=== PATIENT | female | born 1955 | race Caucasian/White ===

== ENCOUNTER → 2017-03-06 | Day surgery (SDC) | payer BC ==
[~2017-03-06] MED LIST: LACTATED RINGER'S 1000 ML INJ 1,000 ML ONE; PROPOFOL 500 MG/50 ML BTL IV ONE
--- NOTE | 2017-03-06 12:18 | GIPROC ---
[facility] [address] [facility], [address] EGD PROCEDURE REPORT EXAM DATE: 03/06/2017 PATIENT NAME: Serene Tomlin MR #: [id number] BIRTHDATE: 1955 ATTENDING: Gregorio Hernandez MD ORDER #: [id number] ASSOCIATE DEAN OF WOMEN: Henna Rosado RN STATUS: outpatient INDICATIONS: The patient is a 61 yr old female here for an EGD due to chest pain PROCEDURE PERFORMED: EGD w/ biopsy MEDICATIONS: None, Per Anesthesia, None, and Per Anesthesia. TOPICAL ANESTHETIC: CONSENT: The patient understands the risks and benefits of the procedure and understands that these risks include, but are not limited to: sedation, allergic reaction, infection, perforation and/or bleeding. Alternative means of evaluation and treatment include, among others: physical exam, x-rays, and/or surgical intervention. The patient elects to proceed with this endoscopic procedure. medical equipment was checked for proper function. Hand hygiene and appropriate measures for infection prevention was taken. After the risks, benefits and alternatives of the procedure were thoroughly explained, Informed consent was verified, confirmed and timeout was successfully executed by the treatment team. The patient was anesthetized with topical anesthesia and the EG-[id number] ([id number]) endoscope was introduced through the mouth and advanced to the second portion of the duodenum. Retroflexed views revealed no abnormalities The gastroscope was then slowly withdrawn and removed. ESOPHAGUS: The mucosa of the esophagus appeared normal. Multiple biopsies were performed. The endoscopy was otherwise normal. ADVERSE EVENTS: There were no complications. IMPRESSIONS: 1. The esophagus appeared normal; multiple biopsies were performed 2. Normal endoscopy otherwise 3. Retroflexed views revealed no abnormalities RECOMMENDATIONS: 1. Await biopsy results. Biopsy results will not be ready for 7-10 days. If you don't hear from us in two weeks, call our office for biopsy results. 2. Follow-up: GI clinic PRN PATIENT CONDITION: stable DISPOSITION: Home REPEAT EXAM: Gregorio Hernandez MD eSigned: Gregorio Hernandez MD 03/06/2017 12:17 PM cc: Danielle Bragg [facility] Dasha
== END | disposition home or self-care (01) ==
LOC: ESDC 10:12
PROVIDERS: ATTEND Internal Medicine Gastroenterology
DX: R07.9 Chest pain, unspecified (principal)
CPT/HCPCS: 00740; 43239; 88305; J3010; J7120

== ENCOUNTER → 2017-03-15 | Outpatient (CLI) | payer BC | LOC: CLAB 13:53 | PROVIDERS: ATTEND Internal Medicine Cardiovascular Disease | DX: R07.9 Chest pain, unspecified (principal) | CPT/HCPCS: 36415; 85379 ==

== ENCOUNTER 2017-10-28 18:46 | Observation (INO) | payer BC ==
[~2017-10-28] VITALS: Ht 165.1 cm; Wt 80.5 kg
[2017-10-28 18:48] VITALS: BP 146/80; PULSE 84; RESP 18; TEMP 98.3; O2SAT 98
[2017-10-28] MEDS ORDERED: PLAV75TA29 PO (20:13)
[2017-10-28] MEDS ORDERED: SODIUM CHLORIDE 0.9% FLUSH 10 ML FLUSH IVF PRN (21:00)
[2017-10-28] MEDS ORDERED: ASPIRIN 81 MG CHEW TAB PO ONE (21:00)
--- NOTE | 2017-10-28 21:03 | PD ---
HPI Chief Complaint: Chest Pain Time Seen by Provider: 20:42 Travel History International Travel<30 days: No Contact w/Intl Traveler<30days: No Traveled to known affect area: No History of Present Illness HPI 62-year-old female presents to the emergency department complaining of midsternal chest pain that started while she is getting for work this morning about 7 AM. States that she was getting ready when the pain started and has been waxing and waning all day. Patient states that currently her pain is 4 out of 10. States that is nonradiating and feels "heavy" in the middle of her chest. States that her pain is not associated with activity. States that she was evaluated 1 year ago and had 1 stent placed. States her last stress test was in February 2017. Her elementary school tutor is Dr. Balderas. Patient denies associated shortness of breath, nausea, vomiting, abdominal pain, back pain. Denies chronic lung issues. Patient does not have nitroglycerin as her blood pressure normally is too low. Patient takes Plavix daily. PFSH Past Medical History Hx Anticoagulant Therapy: Yes (plavix) Cardiovascular Problems: Yes (stent) Diminished Hearing: No Tetanus Vaccination: Unknown Influenza Vaccination: No Past Surgical History Coronary Stent: Yes Other Surgery: Yes (plates to left wrist) Social History Alcohol Use: No Tobacco Use: No Allergies-Medications (Allergen,Severity, Reaction): Uncoded Allergies: NKA (Allergy, Unknown, 06/08/03) Reported Meds & Prescriptions Reported Meds & Active Scripts Active Reported Plavix (Clopidogrel Bisulfate) 75 Mg Tab 75 Mg PO DAILY Review of Systems Except as stated in HPI: all other systems reviewed are Neg Physical Exam Narrative GENERAL: Well-developed well-nourished in no apparent distress, resting comfortably in bed upright SKIN: Focused skin assessment warm/dry. HEAD: Atraumatic. Normocephalic. EYES: Pupils equal and round. No scleral icterus. No injection or drainage. ENT: No nasal bleeding or discharge. Mucous membranes pink and moist. NECK: Trachea midline. No JVD. No lymphadenopathy CARDIOVASCULAR: Regular rate and rhythm. No murmur appreciated. RESPIRATORY: No accessory muscle use. Clear to auscultation. Breath sounds equal bilaterally. GASTROINTESTINAL: Abdomen soft, non-tender, nondistended. No CVA tenderness MUSCULOSKELETAL: No obvious deformities. No clubbing. No cyanosis. No edema. No tenderness palpation of the chest wall NEUROLOGICAL: Awake and alert. No obvious cranial nerve deficits. Motor grossly within normal limits. Normal speech. PSYCHIATRIC: Appropriate mood and affect; insight and judgment normal. Data Data Last Documented VS Vital Signs Date Time Temp Pulse Resp B/P (MAP) Pulse Ox O2 Delivery O2 Flow Rate FiO2 10/28/17 22:45 122/67 (85) 113/66 (82) 10/28/17 22:37 99 Room Air 10/28/17 18:48 98.3 84 18 Orders Orders Electrocardiogram (10/28/17 ) Electrocardiogram (10/28/17 20:54) Ckmb (Isoenzyme) Profile (10/28/17 20:54) Complete Blood Count With Diff (10/28/17 20:54) Comprehensive Metabolic Panel (10/28/17 20:54) Magnesium (Mg) (10/28/17 20:54) Prothrombin Time / Inr (Pt) (10/28/17 20:54) Act Partial Throm Time (Ptt) (10/28/17 20:54) Troponin I (10/28/17 20:54) Chest, Single Ap (10/28/17 20:54) Ecg Monitoring (10/28/17 20:54) Bilateral Bp Monitoring (10/28/17 20:54) Iv Access Insert/Monitor (10/28/17 20:54) Oximetry (10/28/17 20:54) Oxygen Administration (10/28/17 20:54) Aspirin Chew (Aspirin Chew) (10/28/17 21:00) Sodium Chloride 0.9% Flush (Ns Flush) (10/28/17 21:00) CKMB (10/28/17 20:58) CKMB% (10/28/17 20:58) Activity Bed Rest With Brp (10/28/17 22:43) Vital Signs (Adult) Q4H (10/28/17 22:43) Cardiac Rhythm .As Directed (10/28/17 22:43) Notify Dr: Other .PRN (10/28/17 22:43) Notify Parameters (10/28/17 22:43) Diet Heart Healthy (10/29/17 Breakfast) Ckmb (Isoenzyme) Profile (10/28/17 23:58) Ckmb (Isoenzyme) Profile (10/29/17 02:58) Troponin I (10/28/17 23:58) Troponin I (10/29/17 02:58) Electrocardiogram (10/28/17 23:58) Electrocardiogram (10/29/17 02:58) ^ Obtain (10/28/17 22:43) Sodium Chloride 0.9% Flush (Ns Flush) (10/29/17 09:00) Integrated Program Teacher / Telemetry PETE.Q8H (10/28/17 22:43) Admit Order (Ed Use Only) (10/28/17 22:46) Labs Laboratory Tests Test 10/28/17 20:58 White Blood Count 6.2 TH/MM3 Red Blood Count 4.77 MIL/MM3 Hemoglobin 13.6 GM/DL Hematocrit 39.7 % Mean Corpuscular Volume 83.3 FL Mean Corpuscular Hemoglobin 28.6 PG Mean Corpuscular Hemoglobin Concent 34.3 % Red Cell Distribution Width 13.0 % Platelet Count 251 TH/MM3 Mean Platelet Volume 7.1 FL Neutrophils (%) (Auto) 67.5 % Lymphocytes (%) (Auto) 22.1 % Monocytes (%) (Auto) 9.3 % Eosinophils (%) (Auto) 0.6 % Basophils (%) (Auto) 0.5 % Neutrophils # (Auto) 4.2 TH/MM3 Lymphocytes # (Auto) 1.4 TH/MM3 Monocytes # (Auto) 0.6 TH/MM3 Eosinophils # (Auto) 0.0 TH/MM3 Basophils # (Auto) 0.0 TH/MM3 CBC Comment DIFF FINAL Differential Comment Prothrombin Time 10.7 SEC Prothromb Time International Ratio 1.1 RATIO Activated Partial Thromboplast Time 27.7 SEC Blood Urea Nitrogen 11 MG/DL Creatinine 0.64 MG/DL Random Glucose 84 MG/DL Total Protein 8.0 GM/DL Albumin 4.0 GM/DL Calcium Level 8.4 MG/DL Magnesium Level 2.1 MG/DL Alkaline Phosphatase 100 U/L Aspartate Amino Transf (AST/SGOT) 18 U/L Alanine Aminotransferase (ALT/SGPT) 24 U/L Total Bilirubin 0.3 MG/DL Sodium Level 135 MEQ/L Potassium Level 3.7 MEQ/L Chloride Level 96 MEQ/L Carbon Dioxide Level 30.3 MEQ/L Anion Gap 9 MEQ/L Estimat Glomerular Filtration Rate 95 ML/MIN Total Creatine Kinase 120 U/L Creatine Kinase MB 0.9 NG/ML Troponin I LESS THAN 0.02 NG/ML MDM Medical Decision Making Medical Screen Exam Complete: Yes Emergency Medical Condition: Yes Differential Diagnosis Unstable angina, angina, STEMI, NSTEMI, atypical chest pain Narrative Course 62-year-old female presents to the emergency department complaining of midsternal chest pain that started while she is getting for work this morning about 7 AM. States that she was getting ready when the pain started and has been waxing and waning all day. Patient states that currently her pain is 4 out of 10. States that is nonradiating and feels "heavy" in the middle of her chest. States that her pain is not associated with activity. States that she was evaluated 1 year ago and had 1 stent placed. States her last stress test was in February 2017. Her elementary school tutor is Dr. Balderas. Patient denies associated shortness of breath, nausea, vomiting, abdominal pain, back pain. Denies chronic lung issues. Patient does not have nitroglycerin as her blood pressure normally is too low. Patient takes Plavix daily. Vital signs stable. After further discussion, patient states that she has been evaluated with a CT chest with contrast October 16 for evaluation of her anterior chest pain. She gave me a copy of the study and conclusion was "negative study. No acute cardiopulmonary or bony abnormality demonstrated." This imaging study was from [facility] read by Dr. Fountain. I explained to the patient that because of her previous cardiac history, that we would likely admit her to the chest pain center if her labs and imaging study returned stable. Initial cardiac enzymes negative. Laboratory Tests Test 10/28/17 20:58 White Blood Count 6.2 TH/MM3 Red Blood Count 4.77 MIL/MM3 Hemoglobin 13.6 GM/DL Hematocrit 39.7 % Mean Corpuscular Volume 83.3 FL Mean Corpuscular Hemoglobin 28.6 PG Mean Corpuscular Hemoglobin Concent 34.3 % Red Cell Distribution Width 13.0 % Platelet Count 251 TH/MM3 Mean Platelet Volume 7.1 FL Neutrophils (%) (Auto) 67.5 % Lymphocytes (%) (Auto) 22.1 % Monocytes (%) (Auto) 9.3 % Eosinophils (%) (Auto) 0.6 % Basophils (%) (Auto) 0.5 % Neutrophils # (Auto) 4.2 TH/MM3 Lymphocytes # (Auto) 1.4 TH/MM3 Monocytes # (Auto) 0.6 TH/MM3 Eosinophils # (Auto) 0.0 TH/MM3 Basophils # (Auto) 0.0 TH/MM3 CBC Comment DIFF FINAL Differential Comment Prothrombin Time 10.7 SEC Prothromb Time International Ratio 1.1 RATIO Activated Partial Thromboplast Time 27.7 SEC Blood Urea Nitrogen 11 MG/DL Creatinine 0.64 MG/DL Random Glucose 84 MG/DL Total Protein 8.0 GM/DL Albumin 4.0 GM/DL Calcium Level 8.4 MG/DL Magnesium Level 2.1 MG/DL Alkaline Phosphatase 100 U/L Aspartate Amino Transf (AST/SGOT) 18 U/L Alanine Aminotransferase (ALT/SGPT) 24 U/L Total Bilirubin 0.3 MG/DL Sodium Level 135 MEQ/L Potassium Level 3.7 MEQ/L Chloride Level 96 MEQ/L Carbon Dioxide Level 30.3 MEQ/L Anion Gap 9 MEQ/L Estimat Glomerular Filtration Rate 95 ML/MIN Total Creatine Kinase 120 U/L Creatine Kinase MB 0.9 NG/ML Troponin I LESS THAN 0.02 NG/ML Chest x-ray without acute process. Patient will be admitted to the chest pain center. I explained to the patient and the importance of the observation period today. Patient is a history of cardiac stents that were placed approximately 1 year ago. Her last stress test was in February 2017 which was "normal". Diagnosis Primary Impression: Unstable angina Admitting Information Admitting Physician Requests: Observation Condition: Stable Maral Fisher Oct 28, 2017 21:03
--- NOTE | 2017-10-28 21:44 | RADRPT ---
EXAM DATE/TIME: 10/28/2017 21:09 [facility] COMPARISON: No previous studies available for comparison. INDICATIONS : Chest pain. MEDICAL HISTORY : None. SURGICAL HISTORY : Coronary artery stent. ENCOUNTER: Initial ACUITY: 1 day PAIN SCORE: 4/10 LOCATION: middle chest. FINDINGS: A single view of the chest demonstrates the lungs to be symmetrically aerated without evidence of mas s, infiltrate or effusion. The cardiomediastinal contours are unremarkable. Osseous structures are intact. CONCLUSION: No acute disease. Robert Cruz MD on October 28, 2017 at 21:41 Board Certified Radiologist. This report was verified electronically.
[2017-10-28 21:47] LABS: AUTOMATED NEUTROPHIL # 4.2 TH/MM3 (1.8-7.7); BASOPHIL % 0.5 % (0.0-2.0); EOSINOPHIL % 0.6 % (0.0-4.0); HEMATOCRIT 39.7 % (35.0-46.0); HEMOGLOBIN 13.6 GM/DL (11.6-15.3); LYMPH % 22.1 % (9.0-44.0); LYMPHOCYTE # 1.4 TH/MM3 (1.0-4.8); MEAN CELL VOLUME 83.3 FL (80.0-100.0); MEAN CORPUSCULAR HEMOGLOBIN 28.6 PG (27.0-34.0); MEAN CORPUSCULAR HGB CONC 34.3 % (32.0-36.0); MEAN PLATELET VOLUME 7.1 FL (7.0-11.0); MONO % 9.3 % (0.0-8.0); MONOCYTE # 0.6 TH/MM3 (0-0.9); NEUT % 67.5 % (16.0-70.0); PLATELET COUNT 251 TH/MM3 (150-450); RED BLOOD COUNT 4.77 MIL/MM3 (4.00-5.30); WHITE BLOOD COUNT 6.2 TH/MM3 (4.0-11.0)
[2017-10-28 22:00] LABS: INTERNATIONAL NORMALIZED RATIO 1.1 RATIO; PROTHROMBIN TIME - PATIENT 10.7 SEC (9.8-11.6)
[2017-10-28 22:20] LABS: ALT (GPT) 24 U/L (10-53); AST (GOT) 18 U/L (15-37); BICARBONATE 30.3 MEQ/L (21.0-32.0); BLOOD UREA NITROGEN 11 MG/DL (7-18); CALCIUM 8.4 MG/DL (8.5-10.1); CHLORIDE 96 MEQ/L (98-107); CREATININE 0.64 MG/DL (0.50-1.00); GLOMERULAR FILTRATION RATE 95 ML/MIN (>89); GLUCOSE,RANDOM 84 MG/DL (74-106); MAGNESIUM 2.1 MG/DL (1.5-2.5); SODIUM (NA) 135 MEQ/L (136-145)
[2017-10-28 22:28] LABS: ALKALINE PHOSPHATASE 100 U/L (45-117); TOTAL BILIRUBIN ADULT 0.3 MG/DL (0.2-1.0); TROPONIN I LESS THAN 0.02 NG/ML (0.02-0.05)
[2017-10-28 22:45] VITALS: BP_SYST 113; BP_SYST 122; BP_DIAS 66; BP_DIAS 67
[2017-10-28] MEDS ORDERED: IOHEXOL 350 MG/ML 100 ML BTL (for Cath Lab) OTHER ONE (22:49)
[2017-10-28 23:50] VITALS: BP 112/64; PULSE 64; RESP 17; TEMP 98.4; O2SAT 96
[2017-10-29] VITALS (14 sets, daily range): BP systolic 94–120; BP diastolic 57–78; PULSE 61–82; RESP 16–20; TEMP 97–98.3; O2SAT 95–99
[2017-10-29 00:13] LABS: TROPONIN I LESS THAN 0.02 NG/ML (0.02-0.05)
[2017-10-29 03:45] LABS: TROPONIN I LESS THAN 0.02 NG/ML (0.02-0.05)
--- NOTE | 2017-10-29 08:15 | HHI.HP ---
[facility] Primary Care Physician Danielle Romero MD Chief Complaint Chest pain History of Present Illness This is a 62-year-old female with stated history of CAD that presents to ED via private vehicle with complaint of chest discomfort. It began yesterday all getting ready for work. Describes it as a heaviness in the middle of her chest. It is present all day but waxed and waned in intensity. Believes it resolved somewhere in her sleep last evening. Currently no discomfort in her chest. Discomfort average about a 4 out of 10. Denies shortness of breath, nausea, or diaphoresis. When asked if symptoms are similar to when eating a stent about a year ago she replies "exactly how I felt." Found nothing to worsen or improve the symptoms. States she saw Dr. Germain and had a chemical stress test February 2017 and states that she was told that it was normal. She also states that she was followed by cardiovascular thoracic surgeon as she has had intermittent chest pain since the stent and was told everything was looking okay. She states that she spoke with Dr. Germain last night and that he knows that she is in the hospital. States the only medication she is currently on his Plavix. States that she was told she no longer needed aspirin after one year. Also states she ran out of her cholesterol medicine 2 months ago and did not have the insurance to pay for it. Review of Systems General: Patient denies fevers, chills recent, and recent travel HEENT: Patient denies headache, sore throat, difficulty swallowing. Cardiovascular: Has the chest discomfort as mentioned above. Denies sensation of heart beating rapidly or irregularly. No syncope. Denies diaphoresis. Respiratory: Denies shortness of breath or inspirational chest discomfort. Denies coughing wheezing or hemoptysis. GI: Patient denies nausea, vomiting, diarrhea, abdominal pain, bloody stools. Musculoskeletal: Patient denies joint pain or edema. Denies calf pain or edema. Neurovascular: Patient denies numbness, tingling, weakness in extremities. Denies headache. Endocrine: Denies polyuria and polydipsia. Hematologic: Denies easy bruising. Skin: Denies rash or itching. Past Family Social History Allergies: Uncoded Allergies: NKA (Allergy, Unknown, 06/08/03) Past Medical History CAD. States that she had hyperlipidemia but the last time she had her cholesterol checked was in the 60s. Has not taken medication for 2 months stating she ran out. Denies hypertension, diabetes. Past Surgical History States she had a cardiac catheterization about a year ago with a stent. Left wrist. Reported Medications Reported Meds & Active Scripts Active Reported Plavix (Clopidogrel Bisulfate) 75 Mg Tab 75 Mg PO DAILY Active Ordered Medications Current Medications Medications (Trade) Dose Ordered Sig/Luciano Route Start Time Stop Time Status Last Admin (NS Flush) 2 ml UNSCH PRN IVF 10/28/17 21:00 (NS Flush) 2 ml BID IV FLUSH 10/29/17 09:00 Family History There is family history of CAD. Social History Nonsmoker. Denies alcohol or illicit drugs. Physical Exam Vital Signs Vital Signs Date Time Temp Pulse Resp B/P (MAP) Pulse Ox O2 Delivery O2 Flow Rate FiO2 10/29/17 00:19 10/28/17 23:50 98.4 64 17 112/64 (80) 96 10/28/17 22:45 122/67 (85) 113/66 (82) 10/28/17 22:37 99 Room Air 10/28/17 18:48 98.3 84 18 146/80 (102) 98 Room Air Physical Exam GENERAL: This is a well-nourished, well-developed patient, in no apparent distress. Patient speaks in clear complete sentences. Patient is pleasant. HEENT: Head is atraumatic and normocephalic. Neck is supple without lymphadenopathy and trachea is midline. No JVD or carotid bruits. CARDIOVASCULAR: Regular rate and rhythm without murmurs, gallops, or rubs. RESPIRATORY: Clear to auscultation. Breath sounds equal bilaterally. No wheezes , rales, or rhonchi. Chest wall is nontender. No use of accessory muscles. GASTROINTESTINAL: Abdomen is nontender, nondistended. Abdomen soft. No obvious pulsatile mass or bruit. No CVA tenderness. Strong femoral pulses bilaterally. Normal bowel sounds in all quadrants. MUSCULOSKELETAL: Patient is moving upper and lower extremities freely. No calf tenderness or edema, no Homans sign. Strong pulses in upper and lower extremities. NEUROLOGICAL: Patient is alert and oriented. Cranial nerves 2-12 are grossly intact. No focal deficits and speech is clear. SKIN: No rash and turgor is normal. Laboratory Laboratory Tests Test 10/28/17 20:58 10/28/17 23:30 10/29/17 03:05 White Blood Count 6.2 Red Blood Count 4.77 Hemoglobin 13.6 Hematocrit 39.7 Mean Corpuscular Volume 83.3 Mean Corpuscular Hemoglobin 28.6 Mean Corpuscular Hemoglobin Concent 34.3 Red Cell Distribution Width 13.0 Platelet Count 251 Mean Platelet Volume 7.1 Neutrophils (%) (Auto) 67.5 Lymphocytes (%) (Auto) 22.1 Monocytes (%) (Auto) 9.3 Eosinophils (%) (Auto) 0.6 Basophils (%) (Auto) 0.5 Neutrophils # (Auto) 4.2 Lymphocytes # (Auto) 1.4 Monocytes # (Auto) 0.6 Eosinophils # (Auto) 0.0 Basophils # (Auto) 0.0 CBC Comment DIFF FINAL Differential Comment Prothrombin Time 10.7 Prothromb Time International Ratio 1.1 Activated Partial Thromboplast Time 27.7 Blood Urea Nitrogen 11 Creatinine 0.64 Random Glucose 84 Total Protein 8.0 Albumin 4.0 Calcium Level 8.4 Magnesium Level 2.1 Alkaline Phosphatase 100 Aspartate Amino Transf (AST/SGOT) 18 Alanine Aminotransferase (ALT/SGPT) 24 Total Bilirubin 0.3 Sodium Level 135 Potassium Level 3.7 Chloride Level 96 Carbon Dioxide Level 30.3 Anion Gap 9 Estimat Glomerular Filtration Rate 95 Total Creatine Kinase 120 98 98 Creatine Kinase MB 0.9 Troponin I LESS THAN 0.02 LESS THAN 0.02 LESS THAN 0.02 Result Diagram: 10/28/17205710/28/172057 Imaging Last 48 hours Impressions Chest X-Ray 10/28/172053 Signed Impressions: Service Date/Time: Saturday, October 28, 2017 21:09 - CONCLUSION: No acute disease. Robert Cruz MD Course EKGs have sinus rhythm with incomplete right bundle branch block. Borderline first-degree AV block. No significant ST segment depressions or elevations. Caprini VTE Risk Assessment Caprini VTE Risk Assessment: No/Low Risk (score <= 1) Caprini Risk Assessment Model Point Value = 1 Point Value = 2 Point Value = 3 Point Value = 5 Age 41-60 Minor surgery BMI > 25 kg/m2 Swollen legs Varicose veins or History of unexplained or recurrent spontaneous Oral contraceptives or hormone replacement Sepsis (< 1 month) Serious lung disease, including pneumonia (< 1 month) Abnormal pulmonary function Acute myocardial infarction Congestive heart failure (< 1 month) History of inflammatory bowel disease Medical patient at bed rest Age 61-74 Arthroscopic surgery Major open surgery (> 45 min) Laparoscopic surgery (> 45 min) Malignancy Confined to bed (> 72 hours) Immobilizing plaster cast Central venous access Age >= 75 History of VTE Family history of VTE Factor V Leiden Prothrombin [id number] Lupus anticoagulant Anticardiolipin antibodies Elevated serum homocysteine Heparin-induced thrombocytopenia Other congenital or acquired thrombophilia Stroke (< 1 month) Elective arthroplasty Hip, pelvis, or leg fracture Acute spinal cord injury (< 1 month) Prophylaxis Regimen Total Risk Factor Score Risk Level Prophylaxis Regimen 0-1 Low Early ambulation 2 Moderate Order ONE of the following: *Sequential Compression Device (SCD) *Heparin 5000 units SQ BID 3-4 Higher Order ONE of the following medications: *Heparin 5000 units SQ TID *Enoxaparin/Lovenox 40 mg SQ daily (WT < 150 kg, CrCl > 30 mL/min) *Enoxaparin/Lovenox 30 mg SQ daily (WT < 150 kg, CrCl > 10-29 mL/min) *Enoxaparin/Lovenox 30 mg SQ BID (WT < 150 kg, CrCl > 30 mL/min) AND/OR *Sequential Compression Device (SCD) 5 or more Highest Order ONE of the following medications: *Heparin 5000 units SQ TID (Preferred with Epidurals) *Enoxaparin/Lovenox 40 mg SQ daily (WT < 150 kg, CrCl > 30 mL/min) *Enoxaparin/Lovenox 30 mg SQ daily (WT < 150 kg, CrCl > 10-29 mL/min) *Enoxaparin/Lovenox 30 mg SQ BID (WT < 150 kg, CrCl > 30 mL/min) AND *Sequential Compression Device (SCD) Assessment and Plan Assessment and Plan * Chest pain: Patient states she has history of CAD with a stent. Follows Dr. Germain. Currently asymptomatic. Patient was seen by Dr. Wilkerson cardiology and the chest pain center. Patient has had serial cardiac enzymes and EKGs for ruling out purposes. Home medications at this time early including Plavix. We will continue that. We will restart aspirin and a statin and applynitro ointment. Further plan pending conversation with Dr. Jamidar. * CAD: Continue Plavix and restart statin, aspirinv, and apply nitro ointment. * Patient will need follow-up with PCP and cardiology after discharge. Patient is stable time. She is agreeable to this plan. Elias Owen Oct 29, 2017 08:15
[2017-10-29] MEDS: NITROGLYCERIN 2% OINT 1 GM PACKET TOPICAL SCH ×4 (09:00→23:32)
[2017-10-29] MEDS: METOPROLOL TARTRATE 25 MG TAB PO SCH ×2 (09:00→21:00)
[2017-10-29] MEDS ORDERED: SODIUM CHLOR 0.9% 1000 ML INJ 1,000 ML IV SCH ×2 (09:00→14:53)
[2017-10-29] MEDS: ATORVASTATIN 20 MG TAB PO SCH (09:00)
[2017-10-29] MEDS: CLOPIDOGREL 75 MG TAB PO SCH (09:55)
[2017-10-29] MEDS: ASPIRIN 325 MG TAB PO SCH (09:56)
[2017-10-29] MEDS: SODIUM CHLORIDE 0.9% FLUSH 10 ML FLUSH IV FLUSH SCH ×2 (09:59→21:00)
[2017-10-29] MEDS ORDERED: DIAZEPAM 5 MG TAB PO SCH (11:15)
[2017-10-29] MEDS ORDERED: diphenhydrAMINE HCL 50 MG CAP PO SCH (11:15)
[2017-10-29] MEDS ORDERED: diphenhydrAMINE HCL 50 MG/ML VIAL IV PUSH SCH (11:15)
[2017-10-29] MEDS ORDERED: MIDAZOLAM HCL 2 MG/2 ML VIAL ONE (13:36)
[2017-10-29] MEDS ORDERED: HEPARIN-NS/PF INJ 1,000 ML ONE (13:37)
--- NOTE | 2017-10-29 14:25 | PD.CONS ---
History of Present Illness Service Cardiology Physicians Consult Requested By BETH Tarango Reason for Consult Chest pain, known to our practice Primary Care Physician Danielle Romero MD Diagnoses: (1) Unstable angina History of Present Illness The patient is a 62 year old female known to our practice with a cardiac history of of ASHD, abnormal EKG and hyperlipidemia on Repatha until 2 months ago. The patient had a cardiac cath 09/2016 at [facility] with a proximal LAD bare metal stent. She was on Plavix and ASA up until recently when she stopped ASA. She recently was evaluated by Dr Winn for ongoing chest pain. CT chest was negative for anatomic abnormality. She had a negative nuclear stress test 10/2016. Yesterday, she had developed substernal chest aching and pressure that increased with activity and decreased with sedentary behavior. She states that "it was so bad I thought I should call 911." She admits to recent palpitations. Her fitbit shows an increase of HR from 50s to 110-120 bpm. She has not been exercising recently because she is afraid she will get chest pain. Since admission, EKG is negative for acute ischemia and troponin X 3 are negative. She is currently CP free on evaluation. (Malika Vera) Review of Systems Constitutional: DENIES: Fatigue, Fever, Weight gain, Weight loss Endocrine: DENIES: Abnorml menstrual pattern, Heat/cold intolerance, Polydipsia , Polyuria, Polyphagia Eyes: DENIES: Blurred vision, Diplopia, Eye pain, Vision loss Ears, nose, mouth, throat: DENIES: Vertigo, Throat pain, Hoarseness, Sinus Pain , Toothache Respiratory: DENIES: Snoring, Wheezing, Hemoptysis, Sputum production, Shortness of breath Cardiovascular: COMPLAINS OF: Chest pain, Palpitations, DENIES: Syncope, Dyspnea on Exertion, PND, Lower Extremity Edema, Orthopnea, Claudication Gastrointestinal: DENIES: Abdominal pain, Black stools, Bloody stools, Constipation, Diarrhea, Nausea, Vomiting Musculoskeletal: DENIES: Joint pain, Muscle aches, Stiffness, Joint Swelling, Back pain, Neck pain Integumentary: DENIES: Pruritus, Rash Hematologic/lymphatic: DENIES: Bruising, Lymphadenopathy Neurologic: DENIES: Abnormal gait, Headache, Localized weakness, Paresthesias, Seizures, Speech Problems, Tremor, Poor Balance Psychiatric: DENIES: Anxiety, Confusion, Mood changes, Depression (Malika Vera) Past Family Social History Allergies: Uncoded Allergies: NKA (Allergy, Unknown, 06/08/03) Past Medical History ASHD PTCA/stent LAD 09/2016 at [facility] intolerant of statins, was on Repatha, but insurance will not cover Mild carotid stenosis Past Surgical History Cardiac cath 09/2016 Left wrist 12/2015 Left middle finger 2005 carpal tunnel 2002 left foot 1994 Reported Medications Reported Meds & Active Scripts Active Reported Plavix (Clopidogrel Bisulfate) 75 Mg Tab 75 Mg PO DAILY Active Ordered Medications Current Medications Medications (Trade) Dose Ordered Sig/Luciano Route Start Time Stop Time Status Last Admin (NS Flush) 2 ml UNSCH PRN IVF 10/28/17 21:00 (NS Flush) 2 ml BID IV FLUSH 10/29/17 09:00 10/29/17 09:59 (Plavix) 75 mg DAILY PO 10/29/17 09:00 10/29/17 09:55 (Nitroglycerin 2% Oint) 0.5 inch Q6HR TOPICAL 10/29/17 09:00 (Lipitor) 20 mg DAILY PO 10/29/17 09:00 (Lopressor) 25 mg Q12HR PO 10/29/17 09:00 (Aspirin) 325 mg DAILY PO 10/29/17 09:00 10/29/17 09:56 Sodium Chloride 1,000 ml @ 125 mls/hr Q8H IV 10/29/17 09:00 10/29/17 16:59 10/29/17 09:59 (Benadryl) 50 mg WAGON PERSON PO 10/29/17 11:15 11/02/17 11:14 (Valium) 5 mg WAGON PERSON PO 10/29/17 11:15 11/02/17 11:14 (fentaNYL INJ) 50 mcg WAGON PERSON IV PUSH 10/29/17 11:15 11/02/17 11:14 (Benadryl Inj) 25 mg WAGON PERSON IV PUSH 10/29/17 11:15 11/02/17 11:14 Family History father ASHD 60 years old Social History no ETOH or smoking (Malika Vera) Physical Exam Vital Signs Vital Signs Date Time Temp Pulse Resp B/P (MAP) Pulse Ox O2 Delivery O2 Flow Rate FiO2 10/29/17 12:00 97.4 68 20 119/69 (86) 96 10/29/17 08:00 97.0 64 20 106/63 (77) 99 10/29/17 04:33 63 10/29/17 01:21 61 10/29/17 00:19 10/28/17 23:50 98.4 64 17 112/64 (80) 96 10/28/17 22:45 122/67 (85) 113/66 (82) 10/28/17 22:37 99 Room Air 10/28/17 18:48 98.3 84 18 146/80 (102) 98 Room Air Physical Exam GENERAL: This is a well-nourished, well-developed patient, in no apparent distress. SKIN: No rashes, ecchymoses or lesions. HEAD: Atraumatic. Normocephalic. EYES: Pupils equal round and reactive. Extraocular motions intact. No scleral icterus. No injection or drainage. NECK: Trachea midline. No JVD or lymphadenopathy. CARDIOVASCULAR: Regular rate and rhythm without murmurs, gallops, or rubs. Xiphoid tenderness to palpation RESPIRATORY: Clear to auscultation. Breath sounds equal bilaterally. No wheezes , rales, or rhonchi. GASTROINTESTINAL: Abdomen soft, non-tender, nondistended. negative murphys MUSCULOSKELETAL: Extremities without clubbing, cyanosis, or edema. NEUROLOGICAL: Awake and alert. Cranial nerves II through XII intact. Motor and sensory grossly within normal limits. Five out of 5 muscle strength in all muscle groups. Normal speech. Laboratory Laboratory Tests Test 10/28/17 20:58 10/28/17 23:30 10/29/17 03:05 White Blood Count 6.2 Red Blood Count 4.77 Hemoglobin 13.6 Hematocrit 39.7 Mean Corpuscular Volume 83.3 Mean Corpuscular Hemoglobin 28.6 Mean Corpuscular Hemoglobin Concent 34.3 Red Cell Distribution Width 13.0 Platelet Count 251 Mean Platelet Volume 7.1 Neutrophils (%) (Auto) 67.5 Lymphocytes (%) (Auto) 22.1 Monocytes (%) (Auto) 9.3 Eosinophils (%) (Auto) 0.6 Basophils (%) (Auto) 0.5 Neutrophils # (Auto) 4.2 Lymphocytes # (Auto) 1.4 Monocytes # (Auto) 0.6 Eosinophils # (Auto) 0.0 Basophils # (Auto) 0.0 CBC Comment DIFF FINAL Differential Comment Prothrombin Time 10.7 Prothromb Time International Ratio 1.1 Activated Partial Thromboplast Time 27.7 Blood Urea Nitrogen 11 Creatinine 0.64 Random Glucose 84 Total Protein 8.0 Albumin 4.0 Calcium Level 8.4 Magnesium Level 2.1 Alkaline Phosphatase 100 Aspartate Amino Transf (AST/SGOT) 18 Alanine Aminotransferase (ALT/SGPT) 24 Total Bilirubin 0.3 Sodium Level 135 Potassium Level 3.7 Chloride Level 96 Carbon Dioxide Level 30.3 Anion Gap 9 Estimat Glomerular Filtration Rate 95 Total Creatine Kinase 120 98 98 Creatine Kinase MB 0.9 Troponin I LESS THAN 0.02 LESS THAN 0.02 LESS THAN 0.02 (Malika Vera) Result Diagram: 10/28/17205710/28/172057 Imaging Last 72 hours Impressions Chest X-Ray 10/28/172053 Signed Impressions: Service Date/Time: Saturday, October 28, 2017 21:09 - CONCLUSION: No acute disease. Robert Cruz MD (Malika Vera) Assessment and Plan Assessment and Plan Chest pain in a patient with a history of ASHD Hyperlipidemia intolerant of multiple statins due to myalgias. Insurance will not cover Repatha Chronic low BP PLAN: Cardiac cath today. The patient was seen and evaluated by Dr Germain who completed face to face encounter and physical exam and participated in evaluation and management. LATE ENTRY NOTE. The patient was seen and examined today at 0930. (Malika Vera) Assessment and Plan The exam, history, and the medical decision-making described in the above note were completed with the assistance of the mid-level provider. I reviewed and agree with the findings presented. I attest that I had a [id number] encounter with the patient on the same day, and personally performed and documented my assessment and findings in the medical record aPt has USA similar to prior stent , risks of cath reviewed in detail, pt and family accept risks . Will Proceed FERNANDO in case there is stenosis. (Stephanie Germain MD) Malika Vera Oct 29, 2017 14:25 Stephanie Germain MD Oct 29, 2017 14:52
--- NOTE | 2017-10-29 14:49 | CATHPROC ---
[employer] HIS Report Study Information Study Number Admission Scheduled Start Study Start [id number] Oct 28 2017 10:48PM 10/29/2017 Oct 29 2017 1:34PM [facility] Service Cardiac Catheterization Admit Source Facility Department Emergency department [facility] - [employer] Physician and Clinical Staff Initial Stephanie Shaw News Editor Jun RN, Chirag News EditorJustin BurdickRN Recorder Yue Mar,RT(R) Scrub Arley Kwon,RT(R) Scrub Shirley Flores ,RT(R) Procedures Performed Procedure Location (Site) Vessel Name Angiogram LV LV Ventricle Coronary Angiograms LCA Left Coronary Coronary Angiograms RCA Right Coronary L Heart Cath Wire insertion Fem Art (right) Femoral Art Equipment Time Early Intervention School Psychologist Description Size Mfg Part Number Used/Scraped TRANSDUCER, CARLOS [id number] 13:38 HEDRICK ANTON * Used W/STOCKCOCK *[id number] INTRODUCER SET, 13:38 [employer] FR 5 [id number] *[id number] Used MICROPUNCTURE, STIFFENED 538-476 *[id number] 538-420 *[id number] 538-453S *[id number] 13:38 [employer] INDUSTRIES PACK, CCL CUSTOM * Used *[id number] 13:38 [employer] PACER PEN, SKIN DUAL W/ RULER * Used *[id number] 13:38 Seen WIRE, 3MMJ .035 180CM 180CM Used *[id number] PROBE COVER, STERILE [id number] 13:38 [employer] MEDICAL * Used ULTRASOUND W/ GEL *[id number] 13:38 NAMIC MANIFOLD, 4 PORT * Used *[id number] 13:38 NY[employer]ED OMNIPAQUE, 350 MG, 150ML 150ML [id number] Used [id number] 13:38 [employer] MEDICAL BLANKET,WARM AIR CCL * Used *[id number] 13:38 [employer] MEDICAL SHEATH, FR4 TERUMO (10CM) FR 4 Used *[id number] History: Current Medications Medication Dosage/Unit Route Frequency Last Date/Time Taken PLAVIX ASA History: Allergies Allergy Reaction NKA History: Risk Factors Family History of Hypertension Dyslipidemia Previous MA Previous Heart Failure Premature CAD No Yes Yes Yes No Prior Valve Prior PCI Prior PCIDate Prior CABG Surgery No Yes 09/30/2016 No Cerebrovascular Peripheral Artery Chronic Lung On Dialysis Diabetes Disease Disease Disease No No No No No History: Symptoms/Diagnosis Selection Items Chest pain History: CV Disease Selection Items Known CAD History: Stress Tests Stress or Imaging Studies Performed No History: Other Current Smoker No Labs Hgb (g/dl) Hct (%) WBC (l/cumm) Platelets (thousands) 11.60-17.00 35.00-51.00 4.00-11.00 150.00-450.00 13.6 39.7 6.2 251 Glucose (mg/dl) BUN (mg/dl) Creatinine (mg/dl) BUN:Creatinine (1:x) 74.00-106.00 7.00-18.00 0.50-1.30 10.00-20.00 84 11 0.6 18.3 Na (meq/l) K (meq/l) Cl (meq/l) CO2 (mmol/L) Ca (mg/dl) 136.00-145.00 3.50-5.10 98.00-107.00 21.00-32.00 8.50-10.10 135 3.7 96 30.3 8.4 INR (PTT:PT) 0.90-1.10 1.1 Troponin I (ng/ml) CPK (u/l) CPK-MB (ng/ML) 0.02-0.05 26.00-308.00 0.50-3.60 0.02 120 0.9 Medication Medication Total Dose (Bolus/Oral) Medication Total Dosage/Unit 1% XYLOCAINE 20 mL FENTANYL 75 mcg VERSED 2 mg Medications (Bolus/Oral) Medication Time Given Dosage/Unit Administered By Reason 1% XYLOCAINE 10/29/2017 2:06:29 PM 20 mL Stephanie Germain 20 mL 1% XYLOCAINE given in lab by Stephanie Germain in Right Groin via Subcutaneous. VERSED 10/29/2017 2:08:00 PM 2 mg Justin Serrano 2 mg VERSED given in lab by Justin Serrano RN in Left Antecubital via Peripheral IV. Ordered by Stephanie Adkins. FENTANYL 10/29/2017 2:10:00 PM 75 mcg Justin Serrano 75 mcg FENTANYL given in lab by Justin Serrano RN in Left Antecubital via Peripheral IV. Ordered by Stephanie Wan. Medication (Drip) Medication Time Given Dosage/Unit Concentration/Unit Diluent (ml) Solution IV Solutions 10/29/2017 1:44:27 PM 0 mL (IV) 500 NaCl .9 Patient arrived on IV Solutions via Peripheral IV. Pump/Drip Flow = 75 ml/hr using NaCl .9. Initial Case Assessment Cardiovascular HR Rhythm NIBP Chest Pain 93 reg 144/82 0 Edema Present Skin color Skin None Normal Warm Circulatory - Right Pulses Dorsalis Pedis Femoral 3 3 Scale (0,1,2,3,4,d) Circulatory - Left Pulses Dorsalis Pedis Femoral 3 3 Scale (0,1,2,3,4,d) Circulatory - Lower Extremities Color Lower Right Color Lower Left Normal Normal Neurological State Oriented to time-place- Alert Moves all extremities person Respiration - General Respiration Rate SpO2 (%) (B/min) 14 100 Final Case Assessment Cardiovascular HR Rhythm NIBP Chest Pain 92 reg 125/76 0 Edema Present Skin color Skin None Normal Warm Circulatory - Right Pulses Dorsalis Pedis Femoral 3 3 Scale (0,1,2,3,4,d) Circulatory - Left Pulses Dorsalis Pedis Femoral 3 3 Scale (0,1,2,3,4,d) Circulatory - Lower Extremities Color Lower Right Color Lower Left Normal Normal Neurological State Oriented to time-place- Alert Moves all extremities person Respiration - General Respiration Rate SpO2 (%) (B/min) 14 95 Chronological Log Time Study Chronological Log 13:32:50 Patient arrived via Bed. 13:33:49 Patient Name, D.O.B, / Armband Verified By R.N. 13:38:47 Reference ECG taken Vitals capture started with the following parameters, Patient=Adult, Interval=5 min, Initial Pr novwji=045 mmHg, 13:42:31 Deflation Rate=5 mmHg, Cuff placed on Right Arm 13:42:56 Consent signed by the physician and the patient and verified by the [employer] staff. 13:42:57 Pre-op and post- op instructions given; patient acknowledges understanding of instructions. 13:42:58 Verbal Stimulation=2 Physical Stimulation=2 Airway=2 Respiration=2 TOTAL=8. (0=absent, 1=li mited, 2=present) 13:43:11 HR=94 bpm, EYLO=590/82 mmhg, RjP1=719.0 %, Resp=15 B/min, Pain=0, Karol=10, Rodriguez=2 13:44:06 Patient has been NPO for More than 6Hrs. 13:44:07 Skin Breakdown-none 13:44:15 A # 20 IV was noted in the Antecubital (left). Grade = 0 13:44:27 Patient arrived on IV Solutions via Peripheral IV. Pump/Drip Flow = 75 ml/hr using NaCl .9. 13:45:40 History and physical on the chart or being dictated. Assessment: Initial Case, HR=93 BPM, Rhythm=reg, NNYH=551/82 mmhg, Chest Pain=0, Edema=None, Co mellisa=Normal, Skin = Warm Right Pulses: Maged Ped=3, Femoral=3 Left Pulses: Maged Ped=3, Femoral=3 13:45:41 Lower Right Extremities: Color=Normal Lower Left Extremities: Color=Normal Neurological: State=Alert, Ox3, [place] Respiration: Resp=14 B/min, YwU8=337 % 13:46:12 Bilateral groins prepped with 2% chlorhexidine, and draped after a 3 minute waiting time. 13:46:19 MD paged 13:48:10 HR=94 bpm, VJGK=376/81 mmhg, CyL9=304.0 %, Resp=14 B/min, Pain=0, Karol=10, Rodriguez=2 13:53:09 RD=765 bpm, UEUH=018/87 mmhg, CcI9=502.0 %, Resp=19 B/min, Pain=0, Karol=10, Rodriguez=2 13:54:44 Pressure channel 1 zeroed. 13:58:12 UY=244 bpm, CPUL=108/87 mmhg, SpO2=99.0 %, Resp=16 B/min, Pain=0, Karol=10, Rodriguez=2 14:03:09 HR=99 bpm, KUTY=590/83 mmhg, SpO2=98.0 %, Resp=15 B/min, Pain=0, Karol=10, Rodriguez=2 14:03:35 MD arrived. Time Out. Correct patient, correct procedure, correct physician, power injector loaded, or not loaded with contrast with 14:05:44 surgical team present. Time Out Concurred by MD and individual staff in procedure. 14:06:20 Case Start 14:06:22 Verbal Stimulation=2 Physical Stimulation=2 Airway=2 Respiration=2 TOTAL=8. (0=absent, 1=li mited, 2=present) 14:06:29 20 mL 1% XYLOCAINE given in lab by Stephanie Germain in Right Groin via Subcutaneous. 14:08:00 2 mg VERSED given in lab by Justin Serrano RN in Left Antecubital via Peripheral IV. Ordere d by Stephanie Germain. 14:08:10 HR=92 bpm, IACG=674/74 mmhg, SpO2=93.0 %, Resp=17 B/min, Pain=0, Karol=10, Rodriguez=2 75 mcg FENTANYL given in lab by Justin Serrano RN in Left Antecubital via Peripheral IV. Ordere d by Jessa, 14:10:00 Stephanie. Access site was Right Femoral Artery with ultrasound device 14:10:14 14:10:30 A wire was inserted via Fem Art (right). 14:10:31 A SHEATH, FR4 TERUMO (10CM) FR 4 was advanced into the Fem Art (right) using the Percutaneo us technique. 14:13:09 HR=94 bpm, UMVG=648/73 mmhg, SpO2=96.0 %, Resp=20 B/min, Pain=0, Karol=10, Rodriguez=2 A JL 4.0 INFINITI CATHETER FR 4 was advanced over a wire. OMNIPAQUE, 350 MG, 150ML 150ML was us ed for 14:14:08 injections. 14:14:11 The LCA was injected and visualized at various angles. OMNIPAQUE, 350 MG, 150ML 150ML used . 14:18:10 HR=90 bpm, YJID=358/69 mmhg, SpO2=91.0 %, Resp=20 B/min, Pain=0, Karol=10, Rodriguez=2 14:21:20 Catheter was removed A 3DRC INFINITI CATHETER FR 4 was advanced over a wire. OMNIPAQUE, 350 MG, 150ML 150ML was used for 14:21:21 injections. Recorded Pressure: Ao, HR=94, Condition=Condition 1 14:22:10 (Aorta) Ao 105/62/82 14:22:38 The RCA was injected and visualized at various angles. OMNIPAQUE, 350 MG, 150ML 150ML used . 14:23:07 HR=95 bpm, XSAW=847/71 mmhg, SpO2=95.0 %, Resp=16 B/min, Pain=0, Karol=10, Rodriguez=2 14:23:13 Catheter was removed A PIGTAIL ANG. INFINITI CATHETER FR 4 was advanced over a wire. OMNIPAQUE, 350 MG, 150ML 150ML was used 14:23:29 for injections. Recorded Pressure: LV, HR=97, Condition=Condition 1 14:24:39 (Left Ventricle) LV 132/-7/4 14:24:50 The LV was injected at 8 cc/sec for a total of 32. OMNIPAQUE, 350 MG, 150ML 150ML used. Recorded Pressure: LV, Ao, RM=456, Condition=Condition 1 14:26:36 (Left Ventricle) LV 125/-3/8, (Aorta) Ao 120/64/90 14:26:58 Catheter was removed 14:28:06 TV=379 bpm, ESIJ=899/76 mmhg, SpO2=97.0 %, Resp=17 B/min, Pain=0, Karol=10, Rodriguez=2 Assessment: Final Case, HR=92 BPM, Rhythm=reg, ZQWB=524/76 mmhg, Chest Pain=0, Edema=None, Col or=Normal, Skin = Warm Right Pulses: Maged Ped=3, Femoral=3 Left Pulses: Maged Ped=3, Femoral=3 14:29:39 Lower Right Extremities: Color=Normal Lower Left Extremities: Color=Normal Neurological: State=Alert, Ox3, [place] Respiration: Resp=14 B/min, SpO2=95 % 14:30:06 Catheter(s) removed without difficulty 14:30:09 Sheath removed; pressure applied to access site. [email or web address] 14:30:22 Case End 14:30:24 Sterile dressing applied to site 14:30:27 No case complications noted. 14:30:32 Cine recording checked. 14:30:35 Bedside Report will be given. 14:30:38 Contrast Scanned 14:30:42 A Left Heart Cath was performed. 14:30:47 Clinical correlaton risk stratification. 14:33:11 HR=87 bpm, VRZW=171/71 mmhg, SpO2=94.0 %, Resp=16 B/min, Pain=0, Karol=10, Rodriguez=2 14:38:08 HR=88 bpm, LVDL=682/74 mmhg, SpO2=95.0 %, Resp=14 B/min, Pain=0, Karol=10, Rodriguez=2 14:43:07 HR=87 bpm, EPDH=526/80 mmhg, SpO2=97.0 %, Resp=26 B/min, Pain=0, Karol=10, Rodriguez=2 14:45:52 Patient moved to stretcher End Study - Contrast Media Used In Study Contrast Total Opened (mL) Total Used (mL) Total Wasted (mL) Omnipaque 70 70 0 End Study - Maximum Contrast Load Max Contrast Load (mL) 670.1 End Study - Radiation Exposure Fluoro Time (minutes) 2.6 End Study - Sheaths Sheaths Pulled By Sheath Hold Time (min) Arley Kwon 15 End Study - Patient Disposition Complications Transferred To Interventional Outcome No Regular Bed No attempt made
[2017-10-29] MEDS ORDERED: MISC INFORMATION XX ONE (15:00)
--- NOTE | 2017-10-29 16:13 | EKG ---
Date Performed: 10/28/2017 Time Performed: 19:29:45 PTAGE: 62 years EKG: Sinus rhythm WITH FIRST DEGREE AV BLOCK POSSIBLE LEFT ATRIAL ENLARGEMENT MARKED LEFT AXIS DEVIATION INCOMPLETE RI GHT BUNDLE BRANCH BLOCK ABNORMAL ECG NO PREVIOUS TRACING DOCTOR: Tamiko Wilkerson Interpretating Date/Time 10/29/2017 16:10:58
--- NOTE | 2017-10-29 16:13 | EKG ---
Date Performed: 10/28/2017 Time Performed: 23:28:43 PTAGE: 62 years EKG: Sinus rhythm WITH FIRST DEGREE AV BLOCK MARKED LEFT AXIS DEVIATION INCOMPLETE RIGHT BUNDLE BRANCH BLOCK ABNORMAL ECG Since PREVIOUS TRACING , no significant change noted PREVIOUS TRACIN10/28/2017 19.29 DOCTOR: Tamiko Wilkerson Interpretating Date/Time 10/29/2017 16:11:40
--- NOTE | 2017-10-29 16:14 | EKG ---
Date Performed: 10/29/2017 Time Performed: 05:49:38 PTAGE: 62 years EKG: Sinus rhythm WITH FIRST DEGREE AV BLOCK MARKED LEFT AXIS DEVIATION INCOMPLETE RIGHT BUNDLE BRANCH BLOCK ABNORMAL ECG Since PREVIOUS TRACING , no significant change noted PREVIOUS TRACIN10/28/2017 23.28 DOCTOR: Tamiko Wilkerson Interpretating Date/Time 10/29/2017 16:12:29
[2017-10-30] VITALS: BP 123/73; PULSE 67; RESP 16; TEMP 98; O2SAT 98
[2017-10-30 03:00] VITALS: PULSE 53
[2017-10-30 04:00] VITALS: BP 125/67; PULSE 54; RESP 18; TEMP 97.9; O2SAT 98
[2017-10-30] MEDS: NITROGLYCERIN 2% OINT 1 GM PACKET TOPICAL SCH (06:00)
[2017-10-30 08:00] VITALS: BP 112/67; PULSE 60; PULSE 66; RESP 16; TEMP 98.2; O2SAT 99
[2017-10-30] MEDS: METOPROLOL TARTRATE 25 MG TAB PO SCH (09:00)
[2017-10-30] MEDS: ATORVASTATIN 20 MG TAB PO SCH (09:00)
[2017-10-30] MEDS: CLOPIDOGREL 75 MG TAB PO SCH (09:26)
[2017-10-30] MEDS: ASPIRIN 325 MG TAB PO SCH (09:26)
[2017-10-30] MEDS: SODIUM CHLORIDE 0.9% FLUSH 10 ML FLUSH IV FLUSH SCH (09:27)
--- NOTE | 2017-10-30 10:01 | HHI.PR ---
Subjective Remarks no events overnight. Had a clean cath and cleared by cardiology for DC Objective Vitals Vital Signs Date Time Temp Pulse Resp B/P (MAP) Pulse Ox O2 Delivery O2 Flow Rate FiO2 10/30/17 08:00 98.2 66 16 112/67 (82) 99 10/30/17 08:00 60 10/30/17 04:00 97.9 54 18 125/67 (86) 98 10/30/17 03:00 53 10/30/17 00:00 98.0 67 16 123/73 (90) 98 10/29/17 20:00 97.8 64 18 119/69 (86) 98 10/29/17 18:00 69 18 101/60 (74) 95 10/29/17 17:30 71 16 94/60 (71) 95 10/29/17 17:00 71 18 97/59 (72) 96 10/29/17 16:45 71 16 105/64 (78) 98 10/29/17 16:30 71 16 117/57 (77) 98 10/29/17 16:00 71 16 108/78 (88) 97 10/29/17 15:30 82 16 120/78 (92) 97 10/29/17 15:15 78 16 111/72 (85) 97 10/29/17 15:00 98.3 79 16 115/68 (84) 96 10/29/17 15:00 81 10/29/17 12:00 97.4 68 20 119/69 (86) 96 I/O 10/29/17 10/29/17 10/29/17 10/30/17 10/30/17 10/30/17 07:00 15:00 23:00 07:00 15:00 23:00 Intake Total 480 ml Output Total 0 ml Balance 480 ml Intake Oral 480 ml Output Urine Total 0 ml # Bowel Movements 0 Result Diagram: 10/28/17205710/28/172057 Imaging Last Impressions Chest X-Ray 10/28/172053 Signed Impressions: Service Date/Time: Saturday, October 28, 2017 21:09 - CONCLUSION: No acute disease. Robert Cruz MD Objective Remarks GENERAL: This is a well-nourished, well-developed patient, in no apparent distress. Patient speaks in clear complete sentences. Patient is pleasant. CARDIOVASCULAR: Regular rate and rhythm without murmurs, gallops, or rubs. RESPIRATORY: Clear to auscultation. Breath sounds equal bilaterally. No wheezes , rales, or rhonchi. Chest wall is nontender. No use of accessory muscles. GASTROINTESTINAL: Abdomen is nontender, nondistended. Abdomen soft. No obvious pulsatile mass or bruit. No CVA tenderness. Strong femoral pulses bilaterally. Normal bowel sounds in all quadrants. MUSCULOSKELETAL: Patient is moving upper and lower extremities freely. No calf tenderness or edema, no Homans sign. Strong pulses in upper and lower extremities. NEUROLOGICAL: Patient is alert and oriented. Cranial nerves 2-12 are grossly intact. No focal deficits and speech is clear. SKIN: No rash and turgor is normal. A/P Assessment and Plan Chest pain: Patient states she has history of CAD with a stent. Follows Dr. Germain. Patient has had serial cardiac enzymes and EKGs for ruling out purposes. Home medications continued. Had a clen cath per cardiology. Cleared for DC by cardiology to follow up as OP. CAD: Continue home meds Patient will need follow-up with PCP and cardiology after discharge. Patient is stable, cleared by cardiology for DC Discharge Planning DC home in stable condition to follow up as OP with PCP and consultants Diet healthy heart diet Activity ad shea as tolerated Meds per meds reconciliations Rylie Foss MD Oct 30, 2017 10:01
--- NOTE | 2017-10-30 10:05 | HHI.DCPOC ---
Discharge Care Plan Goals to Promote Your Health * To prevent worsening of your condition and complications * To maintain your health at the optimal level Directions to Meet Your Goals Take your medications as prescribed Follow your dietary instruction Follow activity as directed Keep your appointments as scheduled Take your immunizations and boosters as scheduled If your symptoms worsen call your PCP, if no PCP go to Urgent Care Center or Emergency Room Smoking is Dangerous to Your Health. Avoid second hand smoke Call the 24-hour hour crisis hotline for domestic abuse at Rylie Foss MD Oct 30, 2017 10:05
--- NOTE | 2017-10-30 11:04 | MA ---
cc: DANIELLE ROMERO HUMAYUN A. M.D. DATE 10/29/2017 INDICATIONS FOR CATHETERIZATION Unstable angina. CONSENT A fully informed consent was obtained prior to the procedure, the risks of , bleeding, myocardial infarction, perforation, aspiration, foreseen and unforeseen complications were reviewed. The patient fully appeared to understand the risks. PROCEDURE 1. Sedation 2. Left heart catheterization 3. Bilateral coronaries 4. Left ventriculogram PROCEDURAL STATEMENT The patient was draped and prepped in the usual manner. The right femoral artery was entered using a micropuncture technique. Lidocaine was given. The patient was given sedation with Fentanyl and Versed. Via the 4-Peruvian sheath, left and right coronary catheters were used to intubate the left and right coronaries. Pigtail catheter left ventricle. Multiple angiographic views were carried out. At the end of the catheterization procedure, all catheters and sheaths were removed. Manual pressure applied until good hemostasis achieved and the patient was returned to his room in stable condition. FINDINGS HEMODYNAMIC RESULTS Aortic pressure was 120/64 with mean of 90. The left ventricular pressure was 125 with a left ventricular end-diastolic pressure of 8. There was no evidence of any gradient on pullback across the LV outflow tract. LEFT VENTRICULOGRAM The overall left ventricular ejection fraction was 60%. There was no evidence of significant mitral regurgitation or mural thrombus. CORONARIES Left main is free of significant disease. The left anterior descending is a large vessel. There is evidence of a stent in the mid-LAD. The first diagonal branch comes off this stent. There is evidence of a very mild 30-40% stenosis at its ostium. The remainder of the LAD is a very wide vessel. The stent itself in the proximal to mid LAD is widely patent. The circumflex vessel is a large tortuous vessel. There is evidence of a large first obtuse marginal branch and a large second obtuse marginal branch both of which were tortuous and free of significant disease. The right coronary artery was a large dominant vessel with a large posterior descending artery and small posterolateral branch. It too was free of significant disease. CONCLUSION Normal LV function, widely patent stent in the proximal to mid-LAD. Minimal disease in the ostium of the diagonal branch. Noncardiac pain. We will plan to discharge the patient later today. Follow up in my office and with Dr. Danielle Romero. PASCALE Brandt MD,JONNA PARKS/SILVIA /2:37 PM /10:45 AM
== END 2017-10-30 10:48 | disposition home or self-care (01) ==
LOC: NEPC 18:46 → NEDA 22:48 → NEPFCDU 23:47 → HCIS 10-29 13:32
PROVIDERS: ADMIT Hospitalist; ATTEND Hospitalist
DX: R07.9 Chest pain, unspecified (principal); I25.10 Atherosclerotic heart disease of native coronary artery without angina pectoris; I45.10 Unspecified right bundle-branch block; E78.5 Hyperlipidemia, unspecified; Z79.02 Long term (current) use of antithrombotics/antiplatelets; Z95.5 Presence of coronary angioplasty implant and graft
CPT/HCPCS: 71045; 80053; 82550; 82552; 83735; 84484; 85025; 85610; 85730; 93005; 93458; 96360; 96361; 99285; C1769; C1893; G0378; J1644; J2250; J3010; J7030; Q9967

== ENCOUNTER 2018-07-14 20:58 | Observation (INO) ==
[2018-07-14] MEDS ORDERED: Sod Chloride 0.9% Inj 1,000 ML IV.SIG ONE (21:05)
--- NOTE | 2018-07-14 21:32 | ED ---
HPI General Chief complaint: Chest Pain Stated complaint: Medical/EFR Time Seen by Provider: 07/14/18 21:05 Source: patient Mode of arrival: EMS Limitations: no limitations History of Present Illness HPI narrative: The patient is a 63 year old female who presents to the [facility] emergency department with a history of developing a sensation that her heart was racing at approximately 8 PM tonight. She reports that she was sitting when this began. She reports that her heart rate went as high as into the 150s. She reports that her recent medical history is complicated by having a laparoscopic cholecystectomy done earlier today. She was discharged from the hospital after the outpatient procedure at approximately 2 PM today. She reports that at 6:20 PM she did take a Percocet for pain. She reports that she does have a history of coronary artery disease with a single stent placed in her LAD previously. She reports that she is on low-dose aspirin daily, however she has not been taking this over the last week. She reports having one episode of vomiting after the surgery on the way home. She reports having nausea currently. She reports having a midepigastric abdominal pain that is a pressure sensation. She reports that she has had problems with tachycardia over the last 1-2 months. She reports that she was diagnosed as being hyperthyroid. She is in the process of having this evaluated further. On review of systems otherwise, the patient denies having any breath. She denies having any diaphoresis. She denies having any known recent fevers, cough, congestion, neck pain, diarrhea, urinary symptoms, or neurologic symptoms. Related Data Previous Rx's Medication Instructions Recorded metoprolol tartrate 25 mg PO BID tab 07/15/18 Allergies Allergy/AdvReac Type Severity Reaction Status Date / Time No Known Allergies Allergy Verified 07/14/18 09:46 Review of Systems ROS: all other systems reviewed are negative [facility] Medical History Medical History Abdominal pain (Acute) Coronary artery disease (Acute) History of foot fracture (Acute) Hx of fracture of finger (Acute) MRI contraindicated due to metal implant (Acute) Wears glasses (Acute) Surgical History Surgical History History of open reduction and internal fixation (ORIF) procedure (Acute) Hx of heart artery stent (Acute) S/P cholecystectomy (Acute) Social History Social History Substance History: No History of Abuse Second Hand Smoke Exposure: No Smoking Status: Never smoker How Often Do You Have a Drink Containing Alcohol: Never Recent Travel in [facility] within the Last 8 Weeks: No Recent Out of Country Travel within the Last 8 Weeks: No Immunization History Tetanus Immunization: Unsure Exam Const General: cooperative, no acute distress and well developed Nutritional Appearance: well nourished Orientation: alert, awake and oriented x3 [facility] Head: normocephalic and atraumatic Nose: no nasal discharge and no epistaxis Mouth: moist mucous membranes Throat: posterior oropharynx normal and uvula midline Eyes Sclera: normal sclerae Pupils: PERRL Neck Neck: no meningeal signs, trachea midline and no JVD Resp Effort & Inspection: no use of accessory muscles Auscultation: clear to auscultation bilaterally Cardio Rate: tachycardic (Sinus tachycardia in the low 100s, no pulse deficits to the extremities on simultaneous auscultation and palpation of her radial artery) Rhythm: regular rhythm Heart Sounds: no gallops, no murmurs and no rubs GI Inspection: non-distended and other (On visual inspection the patient is noted to have 4 wounds that are Steri-Stripped from her laparoscopic surgery earlier today. No signs of infection or drainage.) Palpation: soft, no hepatosplenomegaly, no guarding, not rigid and nontender Auscultation: normal bowel sounds Back/Spine/Pelvis Back: no CVA tenderness Skin General: dry skin (warm) Neuro General: alert, awake, oriented x3 and other (Grossly nonfocal.) Speech: speech normal Motor: no movement abnormalities noted Extrem General: normal to inspection (2+ pulses in all 4 extremities.), no calf tenderness, no clubbing, no cyanosis and no edema Psych Mood: congruent mood Affect: normal affect Judgment: judgment good Course Initial Documented Vital Signs Temperature 98.9 F 07/14/18 21:02 Pulse Rate 119 H 07/14/18 21:02 Respiratory Rate 18 07/14/18 21:02 Blood Pressure 144/73 H 07/14/18 21:02 Pulse Oximetry 99 07/14/18 21:02 Last Documented Vital Signs Temperature 98.6 F 07/15/18 07:50 Pulse Rate 91 H 07/15/18 08:00 Respiratory Rate 16 07/15/18 07:50 Blood Pressure 114/67 07/15/18 07:50 Pulse Oximetry 97 07/15/18 08:04 Medical Decision Making MDM Narrative Medical decision making narrative: During the course of the patient's emergency department visit, the patient's history, examination, and differential diagnosis were reviewed with the patient. The patient was placed on a monitoring analyst with oximetry and frequent blood pressure monitoring. The patient had IV access obtained and blood work sent for analysis. Diagnostic evaluation was started regarding the patient's tachycardia. The patient was initially provided normal saline IV fluids, nitroglycerin sublingual x1, nitroglycerin 1 inch the chest wall. Patient was given aspirin 324 mg p.o. x1. The patient's chest x-ray shows no acute cardiopulmonary disease, blood work is unremarkable including the initial set of cardiac enzymes, except a TSH that is noted to be low. This was present previously. The patient has mild tachycardia that is improved with IV fluid hydration, therefore I do not suspect thyroid storm as the cause of the patient's symptoms. The patient's midepigastric abdominal pain could be related to her recent surgery, however she does have a history of ACS, therefore the patient will be admitted to the hospital in the chest pain center for rule out serial cardiac enzyme protocol. The patient's results were discussed with the patient, including the plan of care. I explained that further testing and/ or monitoring is indicated based on the patient's history, examination, and/ or laboratory findings. Therefore, I recommended admission for additional evaluation. The patient expressed understanding and was agreeable with this plan. The patient was admitted to the hospital in stable condition and sent to a bed under the care of the [facility]. Medical Screen Exam Complete: Yes Emergency Medical Condition: Yes Differential Diagnosis Differential Diagnosis: Hyperthyroidism, versus thyroid storm, versus SVT, versus atrial fibrillation, versus acute coronary syndrome Medical Records Medical records reviewed: Yes I reviewed the patient's medical records. Lab Data Lab results reviewed: Yes I reviewed the patient's lab results. Result diagrams: 07/14/18 21:27 07/14/18 21:27 Lab Results 07/14/18 07/14/18 07/14/18 Range/Units 21:27 21:27 21:27 WBC 6.9 (4.0-11.0) th/mm3 RBC 4.74 (4.00-5.30) mil/mm3 Hgb 13.2 (11.6-15.3) gm/dL Hct 40.7 (35.0-46.0) % MCV 85.9 (80.0-100.0) fL MCH 27.8 (27.0-34.0) pg MCHC 32.4 (32.0-36.0) % RDW 13.5 (11.6-17.2) % Plt Count 279 (150-450) th/mm3 MPV 7.5 (7.0-11.0) fL Neut % (Auto) 85.7 H (16.0-70.0) % Lymph % (Auto) 9.3 (9.0-44.0) % [place] % (Auto) 4.9 (0.0-8.0) % Eos % (Auto) 0.0 (0.0-4.0) % Baso % (Auto) 0.1 (0.0-2.0) % Neut # (Auto) 5.9 (1.8-7.7) th/mm3 Lymph # (Auto) 0.6 L (1.0-4.8) th/mm3 [place] # (Auto) 0.3 (0.0-0.9) th/mm3 Eos # (Auto) 0.0 (0.0-0.4) th/mm3 Baso # (Auto) 0.0 (0.0-0.2) th/mm3 WBC Differential . Differential Comment Auto diff final PT (9.8-11.6) sec INR Ratio APTT (24.3-30.1) sec Sodium 138 (136-145) meq/L Potassium 3.6 (3.5-5.1) meq/L Chloride 104 (98-107) meq/L Carbon Dioxide 19.6 L (21.0-32.0) meq/L Anion Gap 14 (5-15) meq/L BUN 12 (7-18) mg/dL Creatinine 0.67 (0.50-1.00) mg/dL Estimated GFR 89 (>89) mL/min Random Glucose 145 H (74-106) mg/dL Calcium 8.8 (8.5-10.1) mg/dL Magnesium (1.5-2.5) mg/dL Total Bilirubin 0.3 (0.2-1.0) mg/dL AST 20 (15-37) U/L ALT 32 (10-53) U/L Alkaline Phosphatase 78 (45-117) U/L Total Creatine Kinase (26-192) U/L Troponin I Less than 0.02 L (0.02-0.05) ng/mL B-Natriuretic Peptide 93 (0-100) pg/mL Total Protein 7.6 (6.4-8.2) g/dL Albumin 3.4 (3.4-5.0) g/dL Lipase 45 L (73-393) U/L TSH (0.358-3.740) uIU/mL 07/14/18 07/14/18 07/14/18 Range/Units 21:27 21:27 21:27 WBC (4.0-11.0) th/mm3 RBC (4.00-5.30) mil/mm3 Hgb (11.6-15.3) gm/dL Hct (35.0-46.0) % MCV (80.0-100.0) fL MCH (27.0-34.0) pg MCHC (32.0-36.0) % RDW (11.6-17.2) % Plt Count (150-450) th/mm3 MPV (7.0-11.0) fL Neut % (Auto) (16.0-70.0) % Lymph % (Auto) (9.0-44.0) % [place] % (Auto) (0.0-8.0) % Eos % (Auto) (0.0-4.0) % Baso % (Auto) (0.0-2.0) % Neut # (Auto) (1.8-7.7) th/mm3 Lymph # (Auto) (1.0-4.8) th/mm3 [place] # (Auto) (0.0-0.9) th/mm3 Eos # (Auto) (0.0-0.4) th/mm3 Baso # (Auto) (0.0-0.2) th/mm3 WBC Differential Differential Comment PT 11.4 (9.8-11.6) sec INR 1.1 Ratio APTT 27.0 (24.3-30.1) sec Sodium (136-145) meq/L Potassium (3.5-5.1) meq/L Chloride (98-107) meq/L Carbon Dioxide (21.0-32.0) meq/L Anion Gap (5-15) meq/L BUN (7-18) mg/dL Creatinine (0.50-1.00) mg/dL Estimated GFR (>89) mL/min Random Glucose (74-106) mg/dL Calcium (8.5-10.1) mg/dL Magnesium 1.8 (1.5-2.5) mg/dL Total Bilirubin (0.2-1.0) mg/dL AST (15-37) U/L ALT (10-53) U/L Alkaline Phosphatase (45-117) U/L Total Creatine Kinase 87 (26-192) U/L Troponin I (0.02-0.05) ng/mL B-Natriuretic Peptide (0-100) pg/mL Total Protein (6.4-8.2) g/dL Albumin (3.4-5.0) g/dL Lipase (73-393) U/L TSH 0.029 L (0.358-3.740) uIU/mL 07/15/18 07/15/18 Range/Units 01:18 04:15 WBC (4.0-11.0) th/mm3 RBC (4.00-5.30) mil/mm3 Hgb (11.6-15.3) gm/dL Hct (35.0-46.0) % MCV (80.0-100.0) fL MCH (27.0-34.0) pg MCHC (32.0-36.0) % RDW (11.6-17.2) % Plt Count (150-450) th/mm3 MPV (7.0-11.0) fL Neut % (Auto) (16.0-70.0) % Lymph % (Auto) (9.0-44.0) % [place] % (Auto) (0.0-8.0) % Eos % (Auto) (0.0-4.0) % Baso % (Auto) (0.0-2.0) % Neut # (Auto) (1.8-7.7) th/mm3 Lymph # (Auto) (1.0-4.8) th/mm3 [place] # (Auto) (0.0-0.9) th/mm3 Eos # (Auto) (0.0-0.4) th/mm3 Baso # (Auto) (0.0-0.2) th/mm3 WBC Differential Differential Comment PT (9.8-11.6) sec INR Ratio APTT (24.3-30.1) sec Sodium (136-145) meq/L Potassium (3.5-5.1) meq/L Chloride (98-107) meq/L Carbon Dioxide (21.0-32.0) meq/L Anion Gap (5-15) meq/L BUN (7-18) mg/dL Creatinine (0.50-1.00) mg/dL Estimated GFR (>89) mL/min Random Glucose (74-106) mg/dL Calcium (8.5-10.1) mg/dL Magnesium (1.5-2.5) mg/dL Total Bilirubin (0.2-1.0) mg/dL AST (15-37) U/L ALT (10-53) U/L Alkaline Phosphatase (45-117) U/L Total Creatine Kinase 70 72 (26-192) U/L Troponin I Less than 0.02 L Less than 0.02 L (0.02-0.05) ng/mL B-Natriuretic Peptide (0-100) pg/mL Total Protein (6.4-8.2) g/dL Albumin (3.4-5.0) g/dL Lipase (73-393) U/L TSH (0.358-3.740) uIU/mL Imaging Data Radiologist's impression: Chest X-Ray 07/14/18 21:05 CONCLUSION: No acute findings. Chest CTA 07/15/18 00:00 CONCLUSION: This study is negative for pulmonary embolism. ECG Data Attestation: I personally reviewed and interpreted this ECG as follows: Interpretation: The patient had a EKG done on arrival. The patient's EKG shows a sinus tachycardia heart rate of 116, QRS duration 94 ms, QTC 388 ms. Incomplete right bundle branch block is noted. Discharge Plan Discharge Disposition Patient Disposition: Discharge Home Discharge Condition Condition: Stable Discharge Order Discharge Orders: Discharge Order (Routine); Ordered 07/15/18 Ordered By: Elias Owen Discharge Details Diagnosis: Chest pain, rule out acute myocardial infarction Physicians Team ED Provider: Ghada Henning Primary Care Provider: Danielle Clauido Attending Provider: Glenn Patino Discharge Interventions Interventions: ED Discharge Assessment Last Done: 07/15/18 02:01 Vital Signs Last Done: 07/14/18 22:02 Status ED Status: Left Department Discharge Information Discharge Date/Time: 07/15/18 02:10
--- NOTE | 2018-07-14 21:43 | XR ---
EXAM DATE: 07/14/2018 9:05 PM EDT AGE/SEX: 63 years / Female INDICATIONS: Mid chest pain and palpitations post cholecystectomy today. CLINICAL DATA: This is the patient's initial encounter. Patient reports that signs and symptoms have been present for 1 day and indicates a pain score of 0/10. MEDICAL/SURGICAL HISTORY: None. Coronary artery stent. COMPARISON: [facility] [place], CHEST SINGLE AP, 10/28/2017. . FINDINGS: A single AP view of the chest demonstrates the lungs to be symmetrically aerated without evidence of mass, infiltrate or effusion. The cardiomediastinal contours are unremarkable. Osseous structures a re intact. CONCLUSION: No acute findings. Electronically signed by: Rui Rubin MD 07/14/2018 9:42 PM EDT
[2018-07-14 22:34] LABS: Baso % (Auto) 0.1 % (0.0-2.0); Hematocrit 40.7 % (35.0-46.0); Hemoglobin 13.2 gm/dL (11.6-15.3); Lymph # (Auto) 0.6 th/mm3 (1.0-4.8); Lymph % (Auto) 9.3 % (9.0-44.0); Mean Corpuscular HGB Conc 32.4 % (32.0-36.0); Mean Corpuscular Hemoglobin 27.8 pg (27.0-34.0); Mean Corpuscular Volume 85.9 fL (80.0-100.0); Mean Platelet Volume 7.5 fL (7.0-11.0); Mono # (Auto) 0.3 th/mm3 (0.0-0.9); Mono % (Auto) 4.9 % (0.0-8.0); Neut # (Auto) 5.9 th/mm3 (1.8-7.7); Neut % (Auto) 85.7 % (16.0-70.0); Platelet Count 279 th/mm3 (150-450); Red Blood Count 4.74 mil/mm3 (4.00-5.30); Red Cell Distribution Width 13.5 % (11.6-17.2); White Blood Count 6.9 th/mm3 (4.0-11.0)
[2018-07-14 22:51] LABS: Alanine Aminotransferase 32 U/L (10-53); Albumin 3.4 g/dL (3.4-5.0); Anion Gap 14 meq/L (5-15); Aspartate Aminotransferase 20 U/L (15-37); Blood Urea Nitrogen 12 mg/dL (7-18); Calcium 8.8 mg/dL (8.5-10.1); Carbon Dioxide 19.6 meq/L (21.0-32.0); Chloride 104 meq/L (98-107); Glomerular Filtration Rate 89 mL/min (>89); Glucose,Random 145 mg/dL (74-106); Lipase 45 U/L (73-393); Potassium 3.6 meq/L (3.5-5.1); Sodium 138 meq/L (136-145)
[2018-07-14 22:52] LABS: Magnesium 1.8 mg/dL (1.5-2.5)
[2018-07-14 22:55] LABS: Alkaline Phosphatase 78 U/L (45-117); INR 1.1 Ratio; Prothrombin Time 11.4 sec (9.8-11.6); Total Protein 7.6 g/dL (6.4-8.2)
[2018-07-15 01:53] LABS: Creatine Kinase 70 U/L (26-192)
[2018-07-15 03:17] VITALS: RESP 16
[2018-07-15 06:54] LABS: Creatine Kinase 72 U/L (26-192)
[2018-07-15 07:53] VITALS: BP 114/67; TEMP 98.6; O2SAT 97
[2018-07-15] MEDS ORDERED: Aluminum/Magnesium/Simethacone Susp 30 ML UDC PO ONE (08:15)
--- NOTE | 2018-07-15 09:53 | P.HPCA ---
History of Present Illness Primary Care Physician: Danielle Claudio MD Chief Complaint: Chest pain History of Present Illness: This is a 63-year-old female with history of CAD status post stent of LAD September 2016, hyperlipidemia however not taking medications as she does not tolerate statins that presents to ED via private vehicle to be evaluated for chest discomfort and palpitations. Patient has been dealing with palpitations for some time, has a Holter monitor on at this time from Dr. Germain's office. States that around 8:00 last evening she had a sensation of palpitation which she describes as her heart rate picking up. States it gradually built up to 150 and stayed there for a few minutes but then slowly worked its way down so remained above 100 for greater than 2 hours. By the same time she has had a constant discomfort and points to the center of her chest/xiphoid region throughout the evening and present at this time. The intensity waxes and wanes but she has found nothing to worsen or improve it. Also of note, patient had a laparoscopic cholecystectomy yesterday. Is denying abdominal pain. Denies nausea or vomiting. Denies shortness of breath. Denies swelling in her legs. Upon reviewing records patient had a heart catheterization October 29, [address] Germain, LAD stent was patent. There is 30-40% stenosis of the ostium of the LAD. Circumflex and RCA was free of significant disease. She was last seen at her sidewalk repairer office last week and had a Holter monitor placed which is still on at this time. Patient has history of CAD with stent of the LAD degenerative 17. Hyperlipidemia however she does not tolerate statins. Denies hypertension and diabetes. There is family history of CAD. She is a lifetime non-smoker. Denies alcohol or illicit drug use. She is . - Diagnosis (1) Chest pain (2) Palpitations (3) CAD (coronary artery disease) (4) History of heart artery stent (5) Hyperlipidemia Review of Systems General: Patient denies fevers, chills, and recent travel. HEENT: Patient denies headache, sore throat, difficulty swallowing. Cardiovascular: Complains of heart rate being rapid and heart was in the 150s last evening. Has the chest discomfort as mentioned above. Denies sensation of heart beating irregularly. No syncope. Denies diaphoresis. Respiratory: Denies shortness of breath or inspirational chest discomfort. Denies coughing wheezing or hemoptysis. GI: Patient denies nausea, vomiting, diarrhea, abdominal pain, bloody stools. Musculoskeletal: Patient denies joint pain or edema. Denies calf pain or edema. Neurovascular: Patient denies numbness, tingling, weakness in extremities. Denies headache. Endocrine: Denies polyuria and polydipsia. Hematologic: Denies easy bruising. Skin: Denies rash or itching. PMFSH - History History Provided By: Patient - Medical History Medical History: Medical History (Last Updated 07/14/18 @ 21:29 by Ghada Henning MD) Abdominal pain Coronary artery disease History of foot fracture Hx of fracture of finger MRI contraindicated due to metal implant Wears glasses - Surgical History Surgical History: Surgical History (Last Reviewed 07/14/18 @ 21:28 by Ghada Henning MD) History of open reduction and internal fixation (ORIF) procedure Hx of heart artery stent S/P cholecystectomy - Tobacco History Second Hand Smoke Exposure: No Smoking Status: Never smoker - Alcohol History How Often Do You Have a Drink Containing Alcohol: Never - Substance Use History Substance History: No History of Abuse - Travel History Recent Travel in the [place] Within the Last 8 Weeks: No Recent Travel Out of the Country Within the Last 8 Weeks: No - Immunization History Tetanus Immunization: Unsure Medications and Allergies Active Medications: Active Medications Hydrocodone Bitart/Acetaminophen ([place] 7.5/325) 1 tab PO Q4H PRN PRN Reason: PAIN SCALE 1 TO 7 Ondansetron HCl (Zofran Inj) 4 mg IV.PUSH Q6H PRN PRN Reason: NAUSEA Pantoprazole Sodium (Protonix) 40 mg PO DAILY [facility] Last Admin: 07/15/18 08:54 Dose: 40 mg Sodium Chloride (Ns Flush) 2 ml IV.FLUSH UNSCH PRN PRN Reason: FLUSH AFTER USING IV ACCESS Sodium Chloride (Ns Flush) 2 ml IV.FLUSH BID [facility] Last Admin: 07/15/18 08:54 Dose: 2 ml Sodium Chloride (Ns Flush) 2 ml IV.FLUSH PRN PRN PRN Reason: FLUSH AFTER USING IV ACCESS Allergies Allergy/AdvReac Type Severity Reaction Status Date / Time No Known Allergies Allergy Verified 07/14/18 09:46 Home Medications Medication Instructions Recorded Confirmed Type No Known Home Medications 07/14/18 07/14/18 History Exam Vital signs: Vital Signs 07/14/18 21:02 07/14/18 21:05 07/14/18 21:28 Temperature 98.9 F 98.9 F Pulse Rate 119 H 117 H 108 H Respiratory Rate 18 18 18 Blood Pressure 144/73 H 144/73 H 146/71 H Pulse Oximetry 99 97 97 07/14/18 22:02 07/14/18 22:29 07/14/18 22:57 Temperature Pulse Rate 111 H 100 H 97 H Respiratory Rate 18 Blood Pressure 141/64 H 155/72 H 136/59 L Pulse Oximetry 96 98 99 07/14/18 23:35 07/15/18 01:14 07/15/18 03:16 Temperature 98.9 F Pulse Rate 97 H 95 H 86 Respiratory Rate 18 18 16 Blood Pressure 131/58 L 110/58 L Pulse Oximetry 98 99 97 07/15/18 04:00 07/15/18 04:15 07/15/18 07:50 Temperature 98.8 F 98.6 F Pulse Rate 81 80 84 Respiratory Rate 16 16 Blood Pressure 98/54 L 114/67 Pulse Oximetry 96 97 07/15/18 08:04 Temperature Pulse Rate Respiratory Rate Blood Pressure Pulse Oximetry 97 Intake & Output 07/14/18 07/15/18 07/15/18 18:59 06:59 18:59 Intake Total 1320 / 1320 Balance 1320 / 1320 Weight 75.297 kg Intake: IV 1000 / 1000 NS Inj 1,000 ML @ Wide Open IV. 1000 / 1000 SIG BOLUS ONE Rx#:[id number] Oral 320 / 320 Other: Weight On Admission 75.296 kg Narrative: GENERAL: This is a well-nourished, well-developed patient, in no apparent distress. Patient speaks in clear complete sentences. Patient is pleasant. HEENT: Head is atraumatic and normocephalic. Neck is supple without lymphadenopathy and trachea is midline. No JVD or carotid bruits. CARDIOVASCULAR: Regular rate and rhythm without murmurs, gallops, or rubs. RESPIRATORY: Clear to auscultation. Breath sounds equal bilaterally. No wheezes , rales, or rhonchi. Chest wall is nontender. No use of accessory muscles. GASTROINTESTINAL: Abdomen is nontender, nondistended. Abdomen soft. No obvious pulsatile mass or bruit. No CVA tenderness. Strong femoral pulses bilaterally. Normal bowel sounds in all quadrants. MUSCULOSKELETAL: Patient is moving upper and lower extremities freely. No calf tenderness or edema, no Homans sign. Strong pulses in upper and lower extremities. NEUROLOGICAL: Patient is alert and oriented. Cranial nerves 2-12 are grossly intact. No focal deficits and speech is clear. SKIN: No rash and turgor is normal. Results 07/14/18 21:07/14/18 21: Cardiac Enzymes 07/14/18 07/14/18 07/15/18 Range/Units 21:27 21:27 01:18 AST 20 (15-37) U/L Troponin I Less than 0.02 L Less than 0.02 L (0.02-0.05) ng/mL B-Natriuretic Peptide 93 (0-100) pg/mL 07/15/18 Range/Units 04:15 AST (15-37) U/L Troponin I Less than 0.02 L (0.02-0.05) ng/mL B-Natriuretic Peptide (0-100) pg/mL Coagulation 07/14/18 07/14/18 Range/Units 21:27 21:27 PT 11.4 (9.8-11.6) sec APTT 27.0 (24.3-30.1) sec B-Natriuretic Peptide 93 (0-100) pg/mL CBC 07/14/18 Range/Units 21:27 WBC 6.9 (4.0-11.0) th/mm3 RBC 4.74 (4.00-5.30) mil/mm3 Hgb 13.2 (11.6-15.3) gm/dL Hct 40.7 (35.0-46.0) % Plt Count 279 (150-450) th/mm3 Neut # (Auto) 5.9 (1.8-7.7) th/mm3 Lymph # (Auto) 0.6 L (1.0-4.8) th/mm3 [place] # (Auto) 0.3 (0.0-0.9) th/mm3 Eos # (Auto) 0.0 (0.0-0.4) th/mm3 Baso # (Auto) 0.0 (0.0-0.2) th/mm3 Comprehensive Metabolic Panel 07/14/18 Range/Units 21:27 Sodium 138 (136-145) meq/L Potassium 3.6 (3.5-5.1) meq/L Chloride 104 (98-107) meq/L Carbon Dioxide 19.6 L (21.0-32.0) meq/L BUN 12 (7-18) mg/dL Creatinine 0.67 (0.50-1.00) mg/dL Calcium 8.8 (8.5-10.1) mg/dL AST 20 (15-37) U/L ALT 32 (10-53) U/L Alkaline Phosphatase 78 (45-117) U/L Total Protein 7.6 (6.4-8.2) g/dL Albumin 3.4 (3.4-5.0) g/dL Intake and Output 07/14/18 07/15/18 07/15/18 22:59 06:59 14:59 Intake Total 1000 / 1000 320 / 320 Balance 1000 / 1000 320 / 320 Intake: IV 1000 / 1000 NS Inj 1,000 ML @ Wide Open IV. 1000 / 1000 SIG BOLUS ONE Rx#:[id number] Oral 320 / 320 Other: Weight 75.296 kg 75.297 kg Weight On Admission 75.296 kg - Imaging and Cardiology Imaging: Impressions Chest X-Ray 07/14/18 21:05 CONCLUSION: No acute findings. EKG interpretations - EKG EKG shows: sinus rhythm (EKGs have been sinus tachycardia sinus rhythm without significant ST segment depressions or elevations.) Caprini VTE Risk Assessment Caprini VTE Risk Assessment: Moderate/High Risk (score >= 2) Caprini Risk Assessment Model: Point Value = 1 Point Value = 2 Point Value = 3 Point Value = 5 Age 41-60 Minor surgery BMI > 25 kg/m2 Swollen legs Varicose veins or History of unexplained or recurrent spontaneous Oral contraceptives or hormone replacement Sepsis (< 1 month) Serious lung disease, including pneumonia (< 1 month) Abnormal pulmonary function Acute myocardial infarction Congestive heart failure (< 1 month) History of inflammatory bowel disease Medical patient at bed rest Age 61-74 Arthroscopic surgery Major open surgery (> 45 min) Laparoscopic surgery (> 45 min) Malignancy Confined to bed (> 72 hours) Immobilizing plaster cast Central venous access Age >= 75 History of VTE Family history of VTE Factor V Leiden Prothrombin [id number] Lupus anticoagulant Anticardiolipin antibodies Elevated serum homocysteine Heparin-induced thrombocytopenia Other congenital or acquired thrombophilia Stroke (< 1 month) Elective arthroplasty Hip, pelvis, or leg fracture Acute spinal cord injury (< 1 month) Prophylaxis Regimen: Total Risk Factor Score Risk Level Prophylaxis Regimen 0-1 Low Early ambulation 2 Moderate Order ONE of the following: *Sequential Compression Device (SCD) *Heparin 5000 units SQ BID 3-4 Higher Order ONE of the following medications: *Heparin 5000 units SQ TID *Enoxaparin/Lovenox 40 mg SQ daily (WT < 150 kg, CrCl > 30 mL/min) *Enoxaparin/Lovenox 30 mg SQ daily (WT < 150 kg, CrCl > 10-29 mL/min) *Enoxaparin/Lovenox 30 mg SQ BID (WT < 150 kg, CrCl > 30 mL/min) AND/OR *Sequential Compression Device (SCD) 5 or more Highest Order ONE of the following medications: *Heparin 5000 units SQ TID (Preferred with Epidurals) *Enoxaparin/Lovenox 40 mg SQ daily (WT < 150 kg, CrCl > 30 mL/min) *Enoxaparin/Lovenox 30 mg SQ daily (WT < 150 kg, CrCl > 10-29 mL/min) *Enoxaparin/Lovenox 30 mg SQ BID (WT < 150 kg, CrCl > 30 mL/min) AND *Sequential Compression Device (SCD) Assessment and Plan - Assessment (1) Chest pain Code(s): R07.9 - Chest pain, unspecified Status: Acute (2) Palpitations Code(s): R00.2 - Palpitations Status: Acute (3) CAD (coronary artery disease) Code(s): I25.10 - Atherosclerotic heart disease of [place] coronary artery without angina pectoris Status: Acute (4) History of heart artery stent Code(s): Z95.5 - Presence of coronary angioplasty implant and graft Status: Acute (5) Hyperlipidemia Code(s): E78.5 - Hyperlipidemia, unspecified Status: Acute - Plan * Chest pain: Patient has had serial cardiac enzymes and EKGs for ruling out purposes. Symptoms seem atypical and patient had a heart catheterization about 8-1/2 months ago and the stent was patent. We will check for PE and if that is ruled out we will attempt to speak with her sidewalk repairer. Patient will be evaluated by Dr. Arnold. * CAD: Patient has history of CAD with stent. Patient to follow-up with her sidewalk repairer. * Hyperlipidemia: Patient is discuss further treatment with her sidewalk repairer. States she cannot tolerate statins. * Palpitations: She was tachycardic upon arrival in ED. To follow-up with her sidewalk repairer. Also she states that she is being evaluated for hyperthyroidism. She should follow-up with her PCP soon. Needs get this evaluation started. Patient is stable at this time. She is agreeable to this plan. H&P: Quality - VTE Deep Vein Thrombosis/Pulmonary Embolism Present on Admission: No
--- NOTE | 2018-07-15 09:54 | CT ---
EXAM DATE: 07/15/2018 8:38 AM EDT AGE/SEX: 63 years / Female INDICATIONS: Chest pain, post cholecystectomy CLINICAL DATA: This is the patient's initial encounter. Patient reports that signs and symptoms have been present for 1 day and indicates a pain score of 4/10. MEDICAL/SURGICAL HISTORY: Cerebrovascular disease. Cholecystectomy. Cardiac stent RADIATION DOSE: 18.57 CTDI (mGy) COMPARISON: [facility], CHEST 1V SINGLE AP, 07/14/2018. . TECHNIQUE: Volumetric scanning was performed using a multi-row detector CT scanner during bolus infu juice of 74 ml Omnipaque 350 (iohexol) nonionic water-soluble contrast as a single exam dose. The deena a was post processed with a variety of visualization algorithms including full volume maximum intensi ty projection and sliding thin slab reformation. Using automated exposure control and adjustment of the mA and/or kV according to patient size, radiation dose was kept as low as reasonably achievable t o obtain optimal diagnostic quality images. DICOM format image data is available electronically for review and comparison. FINDINGS: In the visualized upper abdomen, pneumoperitoneum is noted which would be consistent with stated hist ory of recent cholecystectomy. There is mild basilar atelectasis. There is no evidence of pulmonary embolism. There is no evidence of mediastinal mass, adenopathy or hematoma. Mild atherosclerotic calcification is present, including within the coronaries. CONCLUSION: This study is negative for pulmonary embolism. Electronically signed by: Adrian Martini MD 07/15/2018 9:52 AM EDT
[2018-07-15] MEDS ORDERED: Metoprolol Tartrate 25 MG Tablet PO SCH (10:45)
[2018-07-15 11:18] VITALS: PULSE 91
--- NOTE | 2018-07-15 12:44 | ECG ---
Date Performed: 07/15/2018 Time Performed: 04:07:00 PTAGE: 63 years EKG: Sinus rhythm WITH FIRST DEGREE AV BLOCK POSSIBLE LEFT ATRIAL ENLARGEMENT INCOMPLETE RIGHT BUNDLE BRANCH BLOCK LEF T ANTERIOR FASCICULAR BLOCK ABNORMAL ECG PREVIOUS TRACING : 07/15/2018 01.26 Since previous tracing, no significant change noted DOCTOR: Glenn Patino Interpretating Date/Time 07/15/2018 12:44:17
--- NOTE | 2018-07-15 12:49 | ECG ---
Date Performed: 07/15/2018 Time Performed: 01:26:53 PTAGE: 63 years EKG: Sinus rhythm POSSIBLE LEFT ATRIAL ENLARGEMENT MARKED LEFT AXIS DEVIATION POSSIBLE RIGHT VENTRICULAR CONDUCTION DE LAY Poor R wave progression ABNORMAL ECG PREVIOUS TRACING : 07/14/2018 21.03 Since previous tracing, no significant change noted DOCTOR: Glenn Patino Interpretating Date/Time 07/15/2018 12:48:57
--- NOTE | 2018-07-15 12:59 | ECG ---
Date Performed: 07/14/2018 Time Performed: 21:03:48 PTAGE: 63 years EKG: SINUS TACHYCARDIA POSSIBLE LEFT ATRIAL ENLARGEMENT BORDERLINE RIGHT AXIS DEVIATION INCOMPLE TE RIGHT BUNDLE BRANCH BLOCK Poor R wave progression ABNORMAL ECG PREVIOUS TRACING : 10/29/2017 05.49 Since previous tracing, no significant change noted DOCTOR: Glenn Patino Interpretating Date/Time 07/15/2018 12:58:31
== END 2018-07-15 12:17 | disposition home or self-care (01) ==
LOC: NEDA 20:58 → NEPC 20:58 → NEPGCP 07-15 02:05